=== PATIENT | male | born 1985 | race Caucasian/White ===

== ENCOUNTER → 2024-02-03 12:18 | Outpatient (REF) | payer OTHER, SELFPAY | LOC: HWRAD 12:18 | PROVIDERS: ATTENDING PHYSICIAN Internal Medicine Rheumatology; FAMILY PHYSICIAN Internal Medicine | DX: M19.049 Primary osteoarthritis, unspecified hand (principal); M77.8 Other enthesopathies, not elsewhere classified | CPT/HCPCS: 73120 ==

== ENCOUNTER → 2024-10-04 13:55 | Outpatient (REF) | payer OTHER, SELFPAY | LOC: HWRAD 13:55 | PROVIDERS: ATTENDING PHYSICIAN Internal Medicine Endocrinology, Diabetes & Metabolism; FAMILY PHYSICIAN Internal Medicine | DX: E01.0 Iodine-deficiency related diffuse (endemic) goiter (principal) | CPT/HCPCS: 76536 ==

== ENCOUNTER → 2024-10-12 12:33 | Outpatient (REF) | payer OTHER, SELFPAY | LOC: HWRAD 12:33 | PROVIDERS: ATTENDING PHYSICIAN Internal Medicine Endocrinology, Diabetes & Metabolism; FAMILY PHYSICIAN Internal Medicine | DX: E26.09 Other primary hyperaldosteronism (principal) | CPT/HCPCS: 74150 ==